=== PATIENT | male | born 1995 | race Caucasian/White ===

== ENCOUNTER 2016-05-02 21:08 | Emergency (ER) ==
[2016-05-02 21:22] VITALS: BP 116/71
[2016-05-02] MEDS ORDERED: PREDNISONE PO ONE (22:02)
--- NOTE | 2016-05-02 22:10 | PROVIDER DOCUMENTATION ---
HPI-Respiratory General - General Chief Complaint: Cough Stated Complaint: STREP THROAT Time Seen by Provider: 05/02/16 21:58 Source: patient Allergies/Adverse Reactions: Patient Allergies Allergy/AdvReac Type Severity Reaction Status Date / Time cefuroxime Allergy Intermediate HIVES Verified 09/26/14 20:17 cefuroxime axetil * Allergy Unknown Unknown Verified 09/26/14 20:17 [From Ceftin] Home Medications: Home Medication List Medication Instructions Recorded Confirmed Last Taken Type Azithromycin [Zithromax Z-Eyal] 250 mg PO DIRECTED #1 pkg 02/05/16 Unknown Rx Methylprednisolone [Medrol Dosepak] 4 mg PO DIRECTED #1 package 02/05/16 Unknown Rx Phenylephrine HCl/Cod/Prometh 2 tsp PO Q6H PRN PRN #120 syrup 02/05/16 Unknown Rx [Phenergan Vc-Codeine Syrup] Amoxicillin 875 mg PO Q8HR #20 tablet 05/02/16 Unknown Rx Prednisone 20 mg PO BID #10 tablet 05/02/16 Unknown Rx - History of Present Illness-Resp Nature of Presenting Problem: Pt is a 20 yom who presents to eR with CC of dry coughx3 weeks. Pt reports that he has recently been exposed to more thomas environments at work, and has developed dry cough, sore throat, and sinus congestion. Quality of Pain: reports: none Severity in ED: reports: mild Onset/Duration: reports: other (3 weeks) Timing: reports: still present Exposure: reports: other (dust exposure) Cough Quality/Degree: reports: mild, dry cough Associated Symptoms: reports: cough, nasal congestion, nasal drainage, sore throat. denies: chest pain/soreness, facial pain, fever/chills, flu-like symptoms, hurts to breathe, shortness of breath, short of breath, wheezing Similar Symptoms Previously?: No Recently seen or treated by another doctor?: No Review of Systems - Adult - REVIEW OF SYSTEMS - ADULT Constitutional: denies: chills, fever, fatique, night sweats, weight gain, weight loss Eyes: reports: no symptoms reported Ears, Nose, Mouth & Throat: reports: sinus problem (congestion), throat pain. denies: ear discharge, ear pain, epistaxis, nose pain, hoarseness, throat swelling Cardiovascular: denies: chest pain, edema, heart murmur, irregular heart rate, orthopnea, palpitations, poor circulation, PND, syncope Respiratory: reports: cough, dyspnea on exertion. denies: chronic cough, excessive sputum production, hemoptysis, pleurisy, shortness of breath, wheezing Gastrointestinal: reports: no symptoms reported Genitourinary: reports: no symptoms reported Musculoskeletal: reports: no symptoms reported Integumentary: reports: no symptoms reported Neurological: reports: no symptoms reported Psychiatric: reports: no symptoms reported Endocrine: reports: no symptoms reported Hematologic/Lymphatic: reports: no symptoms reported Allergic/Immunologic: reports: no symptoms reported All Other Systems: Reviewed and Negative Past History - Adult - PAST MEDICAL HISTORY-ADULT Review of Records: reports: Nursing Assessment Review, Medications Reviewed - IMMUNIZATION STATUS Childhood Immunizations: See Nurse Assessment Flu Vaccine: See Nurse Assessment Physical Exam-General - PHYSICAL EXAM-ADULT Initial Vital Signs Reviewed: Yes - CONSTITUTIONAL General Appearance: appears well, alert, mild distress. negative: no apparent distress, moderate distress, thin, anxious, lethargic, slow to respond, obtunded , combative - HEAD, EARS, NOSE, MOUTH & THROAT HENMT: normocephalic/atraumatic, moist mucous membranes, normal ENT inspection, pharyngeal erythema, other (nasal congestion/post-nasal drip). negative: pharynx normal, tonsillar exudate - NECK Neck: non-tender, full range of motion, supple. negative: C-spine tenderness, limited range of motion, lymphadenopathy - RESPIRATORY Respiratory: chest non-tender, lungs clear, normal breath sounds. negative: respiratory distress, decreased breath sounds, accessory muscle use, wheezing - CARDIOVASCULAR Cardiovascular: normal peripheral pulses, regular rate, rhythm. negative: bradycardia, tachycardia, irregularly irregular - NEUROLOGIC Neurologic: grossly normal, no motor/sensory deficits. negative: focal weakness , motor weakness, sensory deficit - PSYCHIATRIC Psych/Mental Status: normal mood/affect, normal thought content, normal thought process, oriented x 3 Progress - PLAN OF CARE/RESULTS Progress/Plan/Lab Results: Vital Signs - 24 hr 05/02/16 21:19 Temperature 97.6 F Pulse Rate 70 Respiratory 16 Rate Blood Pressure 116/71 O2 Sat by Pulse 100 Oximetry Orders Category Date Time Status CHEST-2 VIEWS [RAD] Stat Exams 05/02/16 21:42 Taken Prednisone Med 05/02/16 22:02 Discontinued 40 mg PO NOW ONE Departure - Departure Time of Disposition Order: 22:09 DIAGNOSIS: Cough URI (upper respiratory infection) Qualifiers: URI type: unspecified URI Qualified Code(s): J06.9 - Acute upper respiratory infection, unspecified Disposition: HOME 01 Certified Medical Emergency: Emergent Condition: Stable Additional Instructions: ED Follow Up Instructions: You have been treated by a care provider in the Emergency Department. These instructions are being provided to you so you can have an understanding of how to care for yourself upon discharge. Upon discharge from the Emergency Department, you are responsible for making arrangements for follow-up care by a physician of your choice. Take all prescribed medications as directed. Return to the Emergency Department immediately for any new or worsening symptoms. You may call the Physician Referral phone number at [phone] to obtain a list of Physicians who are taking new patients. Prescriptions: Amoxicillin 875 mg PO Q8HR #20 tablet Prednisone 20 mg PO BID #10 tablet Attestation - Scribe Verification/Attestation Scribe:: Mikhail Brown Acting as Scribe for:: Ted Sagastume Scribe documention review:: This chart was documented by a scribe and accurately reflects the service the provider performed and the decisions made by the provider.
--- NOTE | 2016-05-03 10:05 | Diag Imaging Result Document ---
PROCEDURE NAME: CHEST-2 VIEWS - 05/02/2016 CHEST X-RAY 2 VIEWS, 05/02/2016: COMPARISON: None. FINDINGS: There is a calcified granuloma in the right lower lobe. No focal infiltrates, pneumothorax, or pleural effusion. Heart size is normal. IMPRESSION: No acute disease.
== END 2016-05-02 22:34 | disposition home or self-care (01) ==
LOC: ED 21:08
DX: J06.9 Acute upper respiratory infection, unspecified (principal); R05 Cough; R09.81 Nasal congestion; J02.9 Acute pharyngitis, unspecified; R06.09 Other forms of dyspnea
CPT/HCPCS: 71020; 99283; J7512

== ENCOUNTER 2018-04-30 05:25 | Observation (INO) ==
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
[2018-04-30 06:00] LABS: BASO# 0.03 X1000 (0.0-0.2); BASO% 0.4 % (0.0-0.8); EOS# 0.21 X1000 (0.0-0.7); EOS% 2.8 % (0.0-10.0); HEMATOCRIT 41.7 % (42.0-52.0); HEMOGLOBIN 14.5 g/dL (14.0-18.0); LYMPH# 3.59 X1000 (1.2-3.4); LYMPH% 47.5 % (20.5-51.1); MCH 31.9 PG (27-31); MCHC 34.8 g/dL (33-37); MCV 91.6 FL (81-99); MONO# 0.54 X1000 (0.11-0.59); MONO% 7.2 % (1.7-9.3); MPV 9.8 FL (7.4-10.4); NEUT# 3.18 X1000 (1.4-6.5); NEUT% 42.1 % (42.2-75.2); PLT 268 X1000 (130-400); RBC 4.55 XMIL (4.7-6.1); RDW 12.6 % (11.5-14.5); WBC 7.55 X1000 (4.8-10.8)
[2018-04-30 06:21] LABS: AGAP 13; BUN 13 mg/dL (8-22); CALCIUM 9.1 mg/dL (8.8-10.2); CHLORIDE 101 mmol/L (98-107); COSMO 280; CREATININE 1.2 mg/dL (0.7-1.2); ESTIMATED GFR > 60; GLUCOSE 105 mg/dL (70-104); POTASSIUM 3.5 mmol/L (3.5-5.1); SODIUM 140 mmol/L (136-145); TCO2 26 mmol/L (25-35)
[2018-04-30 06:29] LABS: UR AMPHETAMINES QUAL NONE DETECTED (NONE DETECT); UR BARBITUATES QUAL NONE DETECTED (NONE DETECT); UR BENZODIAZEPIN QUAL PRESUMPTIVE POSITIVE (NONE DETECT); UR CANNABINOIDS QUAL PRESUMPTIVE POSITIVE (NONE DETECT); UR COCAINE QUAL NONE DETECTED (NONE DETECT); UR METHADONE QUAL NONE DETECTED (NONE DETECT); UR OPIATES QUAL NONE DETECTED (NONE DETECT); UR OXYCODONE QUAL PRESUMPTIVE POSITIVE (NONE DETECT); UR PCP QUAL NONE DETECTED (NONE DETECT)
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
[2018-04-30] MEDS ORDERED: NARCAN ONE (09:45)
[2018-04-30 10:14] LABS: INR 0.84; PROTIME 12.2 Seconds (11.0-16.0)
[2018-04-30] MEDS: NS 1,000 ML IV SCH (10:31)
[2018-04-30 10:37] LABS: ALB/GLOB RATIO 1.5; ALBUMIN 4.3 g/dL (3.5-5.0); ALKALINE PHOSPHATASE 82 U/L (32-122); DIRECT BILIRUBIN < 0.10 mg/dL (0.00-0.20); GOT 27 U/L (10-34); GPT 18 U/L (10-44); TOTAL BILIRUBIN 0.15 mg/dL (0.20-1.00); TOTAL PROTEIN 7.2 g/dL (6.3-8.3)
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
[2018-04-30] MEDS: TYLENOL PO PRN (19:13)
[2018-04-30] MEDS: XOPENEX NEB INH SCH ×2 (19:15→23:30)
[2018-05-01] MEDS: XOPENEX NEB INH SCH ×4 (03:40→10:26)
[2018-05-01] MEDS: TYLENOL PO PRN ×2 (04:18→10:58)
[2018-05-01 06:23] LABS: BASO# 0.04 X1000 (0.0-0.2); BASO% 0.6 % (0.0-0.8); EOS# 0.21 X1000 (0.0-0.7); EOS% 3.3 % (0.0-10.0); HEMATOCRIT 44.3 % (42.0-52.0); HEMOGLOBIN 15.1 g/dL (14.0-18.0); LYMPH# 2.31 X1000 (1.2-3.4); LYMPH% 36.2 % (20.5-51.1); MCH 31.5 PG (27-31); MCHC 34.1 g/dL (33-37); MCV 92.5 FL (81-99); MONO# 0.46 X1000 (0.11-0.59); MONO% 7.2 % (1.7-9.3); MPV 9.8 FL (7.4-10.4); NEUT# 3.37 X1000 (1.4-6.5); NEUT% 52.7 % (42.2-75.2); PLT 260 X1000 (130-400); RBC 4.79 XMIL (4.7-6.1); RDW 12.8 % (11.5-14.5); WBC 6.39 X1000 (4.8-10.8)
[2018-05-01 06:53] LABS: AGAP 9; BUN 7 mg/dL (8-22); CALCIUM 9.2 mg/dL (8.8-10.2); CHLORIDE 104 mmol/L (98-107); COSMO 279; CREATININE 0.9 mg/dL (0.7-1.2); ESTIMATED GFR > 60; GLUCOSE 90 mg/dL (70-104); POTASSIUM 4.4 mmol/L (3.5-5.1); SODIUM 141 mmol/L (136-145); TCO2 28 mmol/L (25-35)
[2018-05-01] MEDS: NS NEB INH SCH ×2 (08:10→10:26)
[2018-05-01] MEDS: NS 1,000 ML IV SCH (09:03)
[2018-05-01 11:59] VITALS: BP 120/69
[2018-05-01] MEDS ORDERED: IMITREX SUBQ SUBQ ONE (13:59)
== END 2018-05-01 14:59 | disposition home or self-care (01) ==
LOC: SUPCPDRO → ED 05:25 → 4N 05:25 → SUATTDRO 08:08
PROVIDERS: ATTEND Internal Medicine
CPT/HCPCS: 51702; 70450; 71260; 72125; 74177; 80048; 80076; 80101; 80301; 80307; 80320; 80324; 80345; 80346; 80353; 80358; 80361; 80365; 82055; 83992; 85025; 85610; 86850; 86900; 86901; 94640; 94761; 94799; 99285; A9270; G0431; G0434; G0479; G0480; G6040; J2310; J3030; J7030; Q9967